=== PATIENT | female | born 1960 | race African-American/Black ===

== ENCOUNTER 2020-03-31 08:27 | Emergency (ER) | payer OTHER ==
[~2020-03-31] VITALS: Ht 160 cm; Wt 104.3 kg
--- NOTE | ~2020-03-31 | EMS ---
[place] [address] EMS Patient Care Report Name: RADHA ROSALES Room #: REG ARI Benjamin#: [id number] Admission: 03/31/20 Attend Phys: Discharge: Date of : 60 Report #: [id number] THIS REPORT FOR: //name// Report Transmitted: 03/31/2020 09:18 EMS Care Summary [place], [place]/[facility] Incident [id number] @ 03/31/2020 07:50 Incident Location [address] [place] [address] Patient RADHA ROSALES Female, 60 Years 1960 Patient Address [address] [place] [address] Patient History None Reported, Patient Allergies No known allergies, Patient Medications None Reported, Chief Complaint dizziness Disposition Transported No Lights/[place] [facility] Reason Sick Person Transported To [facility] Narrative 60 y/o female c/o of dizziness upon standing The pt states she woke up this morning and went to get out of bed when she experienced dizziness that made her feel like she is going to pass [place] [address] EMS Patient Care Report Name: RADHA ROSALSE Room #: REG [facility] Benjamin#: [id number] Admission: 03/31/20 Attend Phys: Discharge: Date of : 60 Report #: [id number] is conscious A&O x 4 with a GCS of 15. She has a patent airway, breathing is normal, and has a strong reg radial pulse. The pt has no med Hx. Takes no meds. Orthostatic blood pressures were obtained and D-124. The pt states she has had a sore throat and cough for about 1 week. The pt was able to ambulate to our cot with a steady gait. She placed herself on the cot in a position of comfort, was secured to the cot and loaded into the ambulance. VS were obtained again and ECG is ST. The pt denies any pain, n/v/d. She states she wants to go to [place] for care. The pt was transported to [place] with out incident or changes with the pt during transport. EMS returned to service. Initial Vitals @08:12P: 118,SpO2: 76, @08:13P: 112,BP: 146/79,SpO2: 99, @08:11P: 116, @08:00P: 118,R: 14,BP: 138/68,Pain: 0/10,GCS: 15,SpO2: 100,Revised Trauma: 12, @08:02P: 130,R: 14,BP: 171/84,Pain: 0/10,GCS: 15,Glucose: 124,SpO2: 100,Revised Trauma: 12, @08:35P: 124,R: 14,BP: 163/91,Pain: 0/10,GCS: 15,SpO2: 99,Revised Trauma: 12, Assessments @08:27MENTAL:Person Oriented,Time Oriented,Event Oriented,Place Oriented,SKIN:HEENT:Head/Face: No Abnormalities,Neck/Airway: No Abnormalities,LUNG SOUNDS:General: No Abnormalities,ABDOMEN:General: No Abnormalities,PELVIS//GI:No Abnormalities,EXTREMITIES:Capillary Refill: Right Upper: < 2 Sec,Capillary Refill: Left Upper: < 2 Sec,Left Arm: No Abnormalities,Right Arm: No Abnormalities,Left Leg: No Abnormalities,Right Leg: No Abnormalities,PULSE:Radial: 2+ Normal,NEURO:No Abnormalities, Impression Dizziness Procedures @08:00ALS AssessmentResponse: UnchangedSucceeded@08:113-Lead ECGResponse: UnchangedSucceeded Timeline 07:49,Call Received 07:49,Dispatch Notified 07:50,Dispatched 07:51,En Route 07:56,On Scene 07:57,At Patient 08:00,ALS Assessment,Response: UnchangedSucceeded, 08:00,BP: 138/68 M,PULSE: 118,RR: 14 R,SPO2: 100 Ox,ETCO2: ,BG: ,PAIN: 0,GCS: 15, 08:02,BP: 171/84 M,PULSE: 130,RR: 14 R,SPO2: 100 Ox,ETCO2: ,B,PAIN: [facility] [address] [place] [address] EMS Patient Care Report Name: RADHA ROSALES Room #: REG ARI Benjamin#: [id number] Admission: 03/31/20 Attend Phys: Discharge: Date of : 60 Report #: [id number],GCS: 15, 08:11,3-Lead ECG,Response: UnchangedSucceeded, 08:11,BP: / M,PULSE: 116,RR: R,SPO2: Ox,ETCO2: ,BG: ,PAIN: ,GCS: , 08:12,BP: / M,PULSE: 118,RR: R,SPO2: 76 Ox,ETCO2: ,BG: ,PAIN: ,GCS: , 08:13,BP: 146/79 M,PULSE: 112,RR: R,SPO2: 99 Ox,ETCO2: ,BG: ,PAIN: ,GCS: , 08:23,Depart Scene 08:23,At Destination 08:35,BP: 163/91 M,PULSE: 124,RR: 14 R,SPO2: 99 Ox,ETCO2: ,BG: ,PAIN: 0,GCS: 15, 08:42,Call Closed Disclaimer [email or web address] Copyright 2020 [employer] This EMS Care Summary contains data elements from the applicable legal record (which may be displayed differently). It is designed to provide pertinent information for the following purposes: continuity of care, clinical quality, and state data reporting. The complete legal record is available to ED staff and administrators of the receiving hospital in [facility]. All data is provided "as is."
[2020-03-31] MEDS ORDERED: PROAIR HFA8.5 GM INH (09:01)
[2020-03-31] MEDS ORDERED: CLARITIN10 M3 PO (09:01)
[2020-03-31 10:11] LABS: URINE BILIRUBIN NEGATIVE (Negative); URINE BLOOD NEGATIVE (Negative); URINE CLARITY CLEAR; URINE COLOR YELLOW; URINE GLUCOSE-RANDOM* NEGATIVE (Negative); URINE KETONES NEGATIVE (Negative); URINE LEUKOCYTES-REFLEX TRACE (Negative); URINE NITRITE-REFLEX NEGATIVE (Negative); URINE PROTEIN (DIPSTICK) NEGATIVE (Negative); URINE UROBILINOGEN 0.2 E.U./dl (0.2-1.0)
[2020-03-31 10:45] LABS: ABSOLUTE NEUTROPHILS 9.8 thou/uL (1.4-8.2); BASOPHILS 0.5 % (0.0-2.0); EOSINOPHILS 0.6 % (0.0-3.0); HEMATOCRIT 43.2 % (37.0-47.0); HEMOGLOBIN 14.3 gm/dL (12.0-15.0); LYMPHOCYTES 18.1 % (24.0-44.0); MCH 28.5 pg (26.0-34.0); MCHC 33.1 g/dL (28.0-37.0); MCV 86.2 fL (80.0-100.0); MONOCYTES 6.1 % (1.0-8.0); PLATELET COUNT 378 thou/uL (150-400); POLYS 74.7 % (36.0-66.0); RBC 5.02 mil/uL (4.20-5.00); RDW 14.7 % (10.5-14.5); WBC 13.1 thou/uL (4.0-11.0)
[2020-03-31 11:06] LABS: ANION GAP 11 mmol/L (7-16); BUN 9 mg/dL (7-18); CALCIUM 9.8 mg/dL (8.5-10.1); CHLORIDE 105 mmol/L (98-107); CO2 25 mmol/L (21-32); CREATININE 0.8 mg/dL (0.6-1.0); GLUCOSE 140 mg/dL (74-106); POTASSIUM 4.4 mmol/L (3.5-5.1); SODIUM 141 mmol/L (136-145)
[2020-03-31 11:15] LABS: ALBUMIN 3.8 g/dL (3.4-5.0); SGOT 23 U/L (15-37); SGPT 25 U/L (30-65); TOTAL BILIRUBIN 0.4 mg/dL (0.2-1.0); TOTAL PROTEIN 8.7 g/dL (6.4-8.2); TROPONIN-I <0.06 ng/mL (<0.06)
[2020-03-31] MEDS ORDERED: MECLIZINE HCL25 M1 PO (11:56)
[2020-03-31] MEDS ORDERED: VALIUM2 MG PO (11:56)
--- NOTE | 2020-03-31 12:31 | EKG ---
[facility] [place] [address] ELECTROCARDIOGRAM REPORT Name: RADHA ROSALES Room #: REG [facility].#: [id number] Admission: 03/31/20 Attend Phys: Discharge: Date of : 60 Report #: [id number] THIS REPORT FOR: cc: Aleena Bahena MD, Elizabeth A. 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[place] 1960 Requested By: Pedro Gallagher Order Number: [id number] MD: Erasmo Peñaloza Measurements Intervals Seth Rate: 110 P: 42 SC: 153 QRS: 57 QRSD: 84 T: 0 QT: 336 QTc: 455 Interpretive Statements Sinus tachycardia Probable left atrial enlargement Low voltage, precordial leads No previous ECG available for comparison Electronically Signed On 03-31-2020 12:31:33 CDT by Erasmo Peñaloza [email or web address] <ELECTRONICALLY SIGNED> By: Erasmo Peñaloza MD, FACC 03/31/20 1231 00 00 Erasmo Peñaloza MD, [facility] /EPI
[2020-03-31 12:41] VITALS: BP 122/88
== END 2020-03-31 12:41 | disposition home or self-care (01) ==
LOC: ER 08:27
PROVIDERS: Emergency Medicine
DX: H81.10 Benign paroxysmal vertigo, unspecified ear (principal); R60.0 Localized edema; Z20.828 Contact with and (suspected) exposure to other viral communicable diseases; Z88.5 Allergy status to narcotic agent; Z88.1 Allergy status to other antibiotic agents; Z88.2 Allergy status to sulfonamides; Z88.8 Allergy status to other drugs, medicaments and biological substances